=== PATIENT | female | born 1995 | race Caucasian/White ===

== ENCOUNTER 2016-09-11 22:57 | Emergency (ER) | payer BC ==
[2016-09-11 23:05] VITALS: RESP 18
[2016-09-11] MEDS ORDERED: KETOROLAC 30 MG/ML 1 ML VIAL IVP STA (23:23)
[2016-09-11] MEDS ORDERED: SODIUM CHLORIDE 0.9% 1,000 ML IV ONE (23:23)
[2016-09-11] MEDS ORDERED: ONDANSETRON 4 MG/2 ML VIAL IVP STA (23:23)
--- NOTE | 2016-09-11 23:27 | ED ---
Nausea/Vomiting/Diarrhea HPI - General Chief complaint: Nausea/Vomiting/Diarrhea Stated complaint: abdominal pain/vomiting Time Seen by Provider: 09/11/16 23:10 Source: patient, RN notes reviewed Mode of arrival: ambulatory Limitations: no limitations - History of Present Illness Initial comments: Patient is a 21-year-old female presents to the emergency room for evaluation of abdominal pain, nausea, vomiting. Patient states she has been having these symptoms for the past month. Patient states that she went to [facility] about 3 weeks ago where they did lab work and a CT scan and found no significant findings. Patient states that they diagnosed with a urinary tract infection and placed on Bactrim. Patient states that she still continued to have abdominal pain, nausea and vomiting. Patient states she went to see her primary care provider on Saturday and they ordered a HIDA scan for her. Patient states she did not schedule the HIDA scan yet. Patient states she is having worsening right upper quadrant pain that radiates to her back. Patient states every time she eats anything she vomits. Patient denies chest pain. Patient states she began developing diarrhea today. Patient denies recent travels out of the country. Patient denies headache or dizziness. Patient denies any pain or burning during urination or trouble urinating. Patient denies being sexually active. - Related Data Home Medications Medication Instructions Recorded Confirmed Levonorgestrel-Ethin Estradiol 1 tab PO DAILY 01/05/15 09/11/16 [Orsythia-28 Tablet] Previous Rx's Medication Instructions Recorded Nitrofurantoin Monohyd/M-Cryst 100 mg PO Q12HR 7 Days 09/12/16 [Macrobid] Allergies Allergy/AdvReac Type Severity Reaction Status Date / Time latex Allergy Rash/Hives Verified 09/11/16 23:15 Review of Systems ROS Statement: Those systems with pertinent positive or pertinent negative responses have been documented in the HPI. ROS Other: All systems not noted in ROS Statement are negative. Past Medical History Past Medical History: Asthma Additional Past Medical History / Comment(s): ABDOMINAL PAIN, HX OF ANEMIA History of Any Multi-Drug Resistant Organisms: None Reported Past Surgical History: Tonsillectomy Additional Past Surgical History / Comment(s): myringotomy Past Anesthesia/Blood Transfusion Reactions: No Reported Reaction Past Psychological History: No Psychological Hx Reported Smoking Status: Never smoker Past Alcohol Use History: None Reported Past Drug Use History: None Reported - Past Family History Mother Family Medical History: No Reported History General Exam - General Exam Comments Initial Comments: Sitting up in exam room, no acute distress. Limitations: no limitations General appearance: alert, in no apparent distress Head exam: Present: atraumatic, normocephalic, normal inspection Eye exam: Present: normal appearance ENT exam: Present: normal exam Neck exam: Present: normal inspection Respiratory exam: Present: normal lung sounds bilaterally. Absent: respiratory distress Cardiovascular Exam: Present: regular rate, normal rhythm, normal heart sounds GI/Abdominal exam: Present: soft, tenderness (Tenderness on palpating over upper midepigastric and right upper quadrant), normal bowel sounds. Absent: distended, guarding, rebound, rigid Extremities exam: Present: normal inspection Back exam: Present: normal inspection Neurological exam: Present: alert, oriented X3, CN II-XII intact, normal gait Psychiatric exam: Present: normal affect, normal mood Skin exam: Present: warm, dry, intact, normal color. Absent: rash Course Vital Signs 09/11/16 09/12/16 23:01 01:22 Temperature 99.1 F 98.3 F Pulse Rate 86 83 Respiratory 18 18 Rate Blood Pressure 132/73 100/57 O2 Sat by Pulse 97 98 Oximetry Medical Decision Making - Medical Decision Making Patient is a 21-year-old female presents emergency room for evaluation of abdominal pain, nausea and vomiting times one month. Patient states that no ultrasounds were done during her last few visits for this issue. Gallbladder ultrasound showed no acute findings. Pelvic ultrasound showed no acute findings. Patient's issues and better after pain medications given. Advised patient to follow-up with her primary care provider and to follow-up with the HIDA scan that was ordered. Patient can continue taking at home medications as needed. Patient is on Zofran and Pepcid at home. Labs show no concerning findings. Urinalysis suspicious for urinary tract infection. Patient was treated with Bactrim a few weeks ago. Will try patient on Macrobid. Urine culture pending. Patient states she understands everything that was discussed with her. Return parameters discussed. Case discussed with Dr. Rosenberg. - Lab Data Result diagrams: 09/11/16 23:30 09/11/16 23:30 Lab Results 09/11/16 09/11/16 09/11/16 Range/Units 23:30 23:30 23:30 WBC 8.4 (3.8-10.6) k/uL RBC 4.34 (3.80-5.40) m/uL Hgb 12.8 (11.4-16.0) gm/dL Hct 38.2 (34.0-46.0) % MCV 87.9 (80.0-100.0) fL MCH 29.4 (25.0-35.0) pg MCHC 33.4 (31.0-37.0) g/dL RDW 12.5 (11.5-15.5) % Plt Count 219 (150-450) k/uL Neutrophils % 66 % Lymphocytes % 21 % Monocytes % 4 % Eosinophils % 7 % Basophils % 1 % Neutrophils # 5.5 (1.3-7.7) k/uL Lymphocytes # 1.8 (1.0-4.8) k/uL Monocytes # 0.3 (0-1.0) k/uL Eosinophils # 0.6 (0-0.7) k/uL Basophils # 0.1 (0-0.2) k/uL Sodium 142 (137-145) mmol/L Potassium 3.9 (3.5-5.1) mmol/L Chloride 106 (98-107) mmol/L Carbon Dioxide 25 (22-30) mmol/L Anion Gap 11 mmol/L BUN 7 (7-17) mg/dL Creatinine 0.60 (0.52-1.04) mg/dL Est GFR (MDRD) Af Amer >60 (>60 ml/min/1.73 sqM) Est GFR (MDRD) Non-Af >60 (>60 ml/min/1.73 sqM) Glucose 95 (74-99) mg/dL Calcium 9.6 (8.4-10.2) mg/dL Magnesium 1.8 (1.6-2.3) mg/dL Total Bilirubin 0.5 (0.2-1.3) mg/dL AST 18 (14-36) U/L ALT 32 (9-52) U/L Alkaline Phosphatase 60 (38-126) U/L Total Protein 7.5 (6.3-8.2) g/dL Albumin 4.6 (3.5-5.0) g/dL Amylase 49 (30-110) U/L Lipase 44 (23-300) U/L Urine Color Urine Appearance (Clear) Urine pH (5.0-8.0) Ur Specific [place] (1.001-1.035) Urine Protein (Negative) Urine Glucose (UA) (Negative) Urine Ketones (Negative) Urine Blood (Negative) Urine Nitrite (Negative) Urine Bilirubin (Negative) Urine Urobilinogen (<2.0) mg/dL Ur Leukocyte Esterase (Negative) Urine RBC (0-5) /hpf Urine WBC (0-5) /hpf Urine WBC Clumps (None) /hpf Ur Squamous Epith Cells (0-4) /hpf Urine Bacteria (None) /hpf Urine HCG, Qual Not Detected (Not Detectd) 09/11/16 Range/Units 23:30 WBC (3.8-10.6) k/uL RBC (3.80-5.40) m/uL Hgb (11.4-16.0) gm/dL Hct (34.0-46.0) % MCV (80.0-100.0) fL MCH (25.0-35.0) pg MCHC (31.0-37.0) g/dL RDW (11.5-15.5) % Plt Count (150-450) k/uL Neutrophils % % Lymphocytes % % Monocytes % % Eosinophils % % Basophils % % Neutrophils # (1.3-7.7) k/uL Lymphocytes # (1.0-4.8) k/uL Monocytes # (0-1.0) k/uL Eosinophils # (0-0.7) k/uL Basophils # (0-0.2) k/uL Sodium (137-145) mmol/L Potassium (3.5-5.1) mmol/L Chloride (98-107) mmol/L Carbon Dioxide (22-30) mmol/L Anion Gap mmol/L BUN (7-17) mg/dL Creatinine (0.52-1.04) mg/dL Est GFR (MDRD) Af Amer (>60 ml/min/1.73 sqM) Est GFR (MDRD) Non-Af (>60 ml/min/1.73 sqM) Glucose (74-99) mg/dL Calcium (8.4-10.2) mg/dL Magnesium (1.6-2.3) mg/dL Total Bilirubin (0.2-1.3) mg/dL AST (14-36) U/L ALT (9-52) U/L Alkaline Phosphatase (38-126) U/L Total Protein (6.3-8.2) g/dL Albumin (3.5-5.0) g/dL Amylase (30-110) U/L Lipase (23-300) U/L Urine Color Light Yellow Urine Appearance Turbid H (Clear) Urine pH 6.5 (5.0-8.0) Ur Specific [place] 1.005 (1.001-1.035) Urine Protein Negative (Negative) Urine Glucose (UA) Negative (Negative) Urine Ketones Negative (Negative) Urine Blood Trace H (Negative) Urine Nitrite Negative (Negative) Urine Bilirubin Negative (Negative) Urine Urobilinogen <2.0 (<2.0) mg/dL Ur Leukocyte Esterase Large H (Negative) Urine RBC 9 H (0-5) /hpf Urine WBC 62 H (0-5) /hpf Urine WBC Clumps Moderate H (None) /hpf Ur Squamous Epith Cells 36 H (0-4) /hpf Urine Bacteria Moderate H (None) /hpf Urine HCG, Qual (Not Detectd) - Radiology Data Radiology results: report reviewed, image reviewed Disposition Clinical Impression: Urinary tract infection, Abdominal pain Disposition: HOME SELF-CARE Condition: Good Instructions: Abdominal Pain (ED), Urinary Tract Infection in Women (ED) Additional Instructions: Take antibiotics as directed. Please follow up with primary care provider for further evaluation. If any new symptom arises or symptoms worsen, return to ER as soon as possible. Prescriptions: Nitrofurantoin Monohyd/M-Cryst [Macrobid] 100 mg PO Q12HR 7 Days Referrals: Soy Rojas MD [Primary Care Provider] - 1-2 days Time of Disposition: 01:49
[2016-09-11 23:44] LABS: Basophils # (A) 0.1 k/uL (0-0.2); Basophils % (A) 1 %; CH 29.3; CHCM 33.5; Eosinophils # (A) 0.6 k/uL (0-0.7); Eosinophils % (A) 7 %; HCT 38.2 % (34.0-46.0); HDW 2.36; HGB 12.8 gm/dL (11.4-16.0); Luc # (Auto) 0.16; Luc % (Auto) 2; Lymphocytes # (A) 1.8 k/uL (1.0-4.8); Lymphocytes % (A) 21 %; MCH 29.4 pg (25.0-35.0); MCHC 33.4 g/dL (31.0-37.0); MCV 87.9 fL (80.0-100.0); Mean Platelet Volume 6.4; Monocytes # (A) 0.3 k/uL (0-1.0); Monocytes % (A) 4 %; Neutrophils # (A) 5.5 k/uL (1.3-7.7); Neutrophils % (A) 66 %; RBC 4.34 m/uL (3.80-5.40); RDW 12.5 % (11.5-15.5); WBC 8.4 k/uL (3.8-10.6); WBC (Perox) 8.37
[2016-09-11 23:49] LABS: Appearance,Urine Turbid (Clear); Bacteria,Urine Moderate /hpf; Bilirubin,Urine Negative (Negative); Glucose,Urine (UA) Negative (Negative); Ketones,Urine Negative (Negative); Leukocyte Esterase,Urine Large (Negative); Nitrite,Urine Negative (Negative); PH, Urine 6.5 (5.0-8.0); Particle Count 22792; Protein,Urine Negative (Negative); RBC,Urine 9 /hpf (0-5); Specific Gravity,Urine 1.005 (1.001-1.035); Squamous Epithelial Cell,Urine 36 /hpf (0-4); UA Billing (MACRO vs. MICRO) MICRO; Urobilinogen,Urine <2.0 mg/dL (<2.0); WBC,Urine 62 /hpf (0-5)
[2016-09-11 23:54] LABS: ALT 32 U/L (9-52); AST 18 U/L (14-36); Alkaline Phosphatase 60 U/L (38-126); Amylase 49 U/L (30-110); Anion Gap 11 mmol/L; Blood Urea Nitrogen 7 mg/dL (7-17); Calcium 9.6 mg/dL (8.4-10.2); Carbon Dioxide 25 mmol/L (22-30); Chloride 106 mmol/L (98-107); Glucose 95 mg/dL (74-99); Magnesium 1.8 mg/dL (1.6-2.3); Non-African American GFR(MDRD) >60 (>60 ml/min/1.73 sqM); Potassium 3.9 mmol/L (3.5-5.1); Sodium 142 mmol/L (137-145); Total Bilirubin 0.5 mg/dL (0.2-1.3); Total Protein 7.5 g/dL (6.3-8.2)
[2016-09-12 01:24] VITALS: BP 100/57; PULSE 83; TEMP 98.3
--- NOTE | 2016-09-12 01:36 | US ---
EXAM: US Abdomen Complete CLINICAL HISTORY: Reason: Pain TECHNIQUE: Real-time ultrasound of the abdomen (right upper quadrant) with image documentation. COMPARISON: CT abdomen pelvis dated 11/09/14 FINDINGS: Liver: Unremarkable. No mass. No intrahepatic bile duct dilation. Gallbladder: Unremarkable. No gallstones. Sonographic Godfrey's sign is reported to be absent. Common bile duct: Unremarkable as visualized. No stones. No dilation. Pancreas: Not well-seen due to overlying bowel gas. Kidney, right: Unremarkable. No stones. No solid mass. No hydronephrosis. IMPRESSION: Normal abdominal ultrasound.
--- NOTE | 2016-09-12 01:39 | US ---
EXAM: US Pelvis Complete, Transabdominal CLINICAL HISTORY: Reason: Pain TECHNIQUE: Real-time transabdominal and transvaginal pelvic ultrasound (complete) with image documentation. COMPARISON: CT abdomen pelvis dated 11/09/14. FINDINGS: Uterus/cervix: Unremarkable. Normal endometrial stripe thickness. No myometrial mass. Endometrium Compex measures 4 mm. Uterus measures 7.6 x 3.4 x 4.4 cm. Right ovary: Unremarkable. No mass. Normal blood flow. Right ovary measures 3.4 x 1.9 x 2.8 cm. Left ovary: Unremarkable. No mass. Normal blood flow. Left ovary measures 3.1 x 2.2 x 2.4 cm. Free fluid: No free fluid. Bladder: Unremarkable as visualized. Wall is normal thickness for degree of distention. IMPRESSION: Normal pelvic ultrasound.
== END 2016-09-12 02:05 | disposition home or self-care (01) ==
LOC: EC 22:57
DX: N39.0 Urinary tract infection, site not specified (principal); R10.11 Right upper quadrant pain; R11.2 Nausea with vomiting, unspecified; R19.7 Diarrhea, unspecified; Z79.3 Long term (current) use of hormonal contraceptives; Z91.040 Latex allergy status
CPT/HCPCS: 36415; 80053; 82150; 83690; 83735; 85025; 81001; 81025; 87491; 87591; 87086; 93975; 76705; 76856; 99284; 96374; 96375; 96361 ×2; J2405; J1885

== ENCOUNTER 2016-09-20 07:29 | Day surgery (SDC) | payer BC ==
[2016-09-18 13:13] VITALS: BMI 25.0
[~2016-09-20 07:29] MED LIST: LACTATED RINGERS 1,000 ML IV SCH
[2016-09-20 07:43] VITALS: TEMP 98.1
[2016-09-20] MEDS ORDERED: LIDOCAINE 1% 20 ML VIAL (10MG/ML) FOR IV START SQ ONE (07:45)
[2016-09-20] MEDS ORDERED: PROPOFOL 10 MG/ML 20 ML VIAL IV ONE (09:16)
--- NOTE | 2016-09-20 10:01 | P.PCN ---
Date of Procedure: 09/20/16 Preoperative Diagnosis: Postoperative Diagnosis: Procedure(s) Performed: Procedure: 1. Esophagogastroduodenoscopy and biopsy. 2. Colonoscopy and biopsy. Preoperative diagnosis: Change in bowel habits, epigastric pain with nausea and vomiting. Postoperative diagnosis: 1. Small sliding hiatal hernia with no obvious esophagitis or complicated reflux disease. 2. Mild antral gastritis. 3. Normal colon and terminal ileum. Preparation: HalfLytely prep. Sedation: Was provided by anesthesia. Brief clinical history: The patient is a 21-year-old female who is referred for this evaluation because of recurrent epigastric pain, nausea and vomiting which was intermittent over the last year or 2 but became almost daily for the last several weeks. She was in the emergency room 2 different times. Gallbladder workup has been negative except for increased ejection fraction. For the last few weeks she has been having diarrhea as well. Procedure: With the patient on her left lateral decubitus position and after informed consent and adequate sedation, I passed the Olympus-GIF 160 video upper endoscope through the cricopharyngeus down the esophagus. GE junction was around a 6 cm from the incisors and there was a small sliding hiatal hernia. The esophagus did not show any erosions, ulcers, strictures or Burns' s esophagus. The endoscope was then passed into the stomach which was insufflated with air and inspected in detail including the retroflex view in the cardia. There was some mottling and erythema in the antrum but no ulcers or erosions. Pyloric channel, duodenal bulb, post bulbar area and descending duodenum appeared within normal limits. I obtained multiple biopsies from the duodenum, antrum and esophagus then the endoscope was withdrawn and I proceeded with the colonoscopy. Perianal area did not show any fissures or fistulas. There were no masses felt on digital rectal examination. The Olympus CFQ 160L video colonoscope was then inserted in the rectum in the usual fashion and advanced to the cecum. I intubated the ileocecal valve and examined the terminal ileum as well. Terminal ileum and colon appeared healthy with no edema, erythema, friability, ulceration, exudation or spontaneous bleeding. No diverticular disease or other pathology. I obtained biopsies from the terminal ileum and right colon then I retroflexed the endoscope in the rectum before the endoscope was withdrawn. The patient tolerated the procedure well. Plan: The patient was reassured. Will await biopsy results. She will follow- up with you as planned and I will be happy to see in the office of her symptoms persist. Implants: Indications for Procedure: Operative Findings: Description of Procedure:
[2016-09-20 10:28] VITALS: BP 98/60; PULSE 76; RESP 14
== END 2016-09-20 10:45 | disposition home or self-care (01) ==
LOC: ORWHC2ENDO 07:29
DX: K29.50 Unspecified chronic gastritis without bleeding (principal); K44.9 Diaphragmatic hernia without obstruction or gangrene; K20.9 Esophagitis, unspecified; R19.4 Change in bowel habit; Z91.040 Latex allergy status; Z79.2 Long term (current) use of antibiotics; Z79.899 Other long term (current) drug therapy
CPT/HCPCS: 81025; 88305; 88342; 45380; 43239; J2704

== ENCOUNTER 2016-10-19 07:44 | Day surgery (SDC) | payer BC ==
--- NOTE | 2016-10-15 10:32 | HP ---
DATE OF ADMISSION: CHIEF COMPLAINT: Abdominal pain. The patient is a 21-year-old female seen in the office today complaining of right upper quadrant pain. This pain is associated with several episodes of nausea and vomiting. She has had approximately 4 to 5 separate ER visits now with this complaint. Her work-up has included an abdominal ultrasound which was negative. A CAT scan also was fairly unremarkable. She had an upper and lower endoscopy performed by Dr. Rosario, which did not show any definite abnormalities to explain her discomfort. A HIDA scan showed hyperdynamic gallbladder with an ejection fraction of 95%. The patient denies any change in bowel habits. No rectal bleeding or melena. No change in the color of her skin, urine or stool. PAST MEDICAL HISTORY: Denies. PAST SURGICAL HISTORY: Tonsil. MEDICATIONS: None. ALLERGIES: None. PHYSICAL EXAMINATION: GENERAL: Well-developed, well-nourished female in no distress, and she is normocephalic. Sclerae anicteric. CHEST: No deformities. ABDOMEN: Soft. Mild right upper quadrant tenderness. EXTREMITIES: Without edema. IMPRESSION: A 21-year-old female with biliary hyperkinesia. PLAN: Will proceed with laparoscopic cholecystectomy on 10/19. The risks of bleeding, infection, biloma formation, common bile duct injury, retained CBD stone, trocar-related injury and conversion to an open procedure were discussed. Additionally, chronic diarrhea, and chronic, persistent postoperative pain, were discussed as possibilities. The patient understands these risks and wishes to proceed.
[2016-10-16 15:57] VITALS: BMI 25.0
--- NOTE | 2016-10-18 08:35 | P.GSHP ---
History of Present Illness H&P Date: 10/19/16 Chief Complaint: Right upper quadrant pain Is a 21-year-old female who's had complaints of right quadrant pain. Her recent HIDA scan shows evidence of decreased ejection fraction consistent with biliary dyskinesia. Past Medical History Past Medical History: Asthma Additional Past Medical History / Comment(s): RLQ ABDOMINAL PAIN, VOMITING, HX OF ANEMIA, recent UTI History of Any Multi-Drug Resistant Organisms: None Reported Past Surgical History: Tonsillectomy Additional Past Surgical History / Comment(s): myringotomy Past Anesthesia/Blood Transfusion Reactions: No Reported Reaction Past Psychological History: No Psychological Hx Reported Smoking Status: Never smoker Past Alcohol Use History: None Reported Past Drug Use History: None Reported - Past Family History Mother Family Medical History: No Reported History Medications and Allergies Home Medications Medication Instructions Recorded Confirmed Type Levonorgestrel-Ethin Estradiol 1 tab PO DAILY 01/05/15 10/16/16 History [Orsythia-28 Tablet] Allergies Allergy/AdvReac Type Severity Reaction Status Date / Time latex Allergy Rash/Hives Verified 10/16/16 15:53 Surgical - Exam - General well developed, no distress - Eyes PERRL - Neck no masses - Cardiovascular Rhythm: regular - Abdomen Abdomen: soft, non tender Assessment and Plan Plan: Chronic cholecystitis The decision We'll perform laparoscopic cholecystectomy
[~2016-10-19 07:44] MED LIST changes: +DEXAMETHASONE SOD PHOSPHATE 10 MG/ML 1 ML VIAL IV ONE; +HEPARIN SODIUM,PORCINE 5,000 UNIT/ML 1 ML VIAL SQ ONE; +HYDROmorphone 1 MG/ML 1 ML SYRINGE IVP PRN; +LIDOCAINE 1% 20 ML VIAL (10MG/ML) FOR IV START INTRADERMA PRN; +ONDANSETRON 4 MG/2 ML VIAL IVP ONE; +SCOPOLAMINE 1.5MG/72HR PATCH TRANSDERM ONE; +ceFAZolin 2 GM in SODIUM CHLORIDE 0.9% 100 ML IVPB ONE
[2016-10-19] MEDS ORDERED: BUPIVACAIN-EPI 0.25%-1:200,000 30 ML VIAL SQ ONE ×2 (09:09→10:02)
[2016-10-19] MEDS ORDERED: PROPOFOL 10 MG/ML 20 ML VIAL IV ONE (09:37)
[2016-10-19] MEDS ORDERED: ePHEDrine 50 MG/ML 1 ML AMP ONE (09:37)
[2016-10-19] MEDS ORDERED: ROCURONIUM BROMIDE 10 MG/ML 10 ML VIAL IV ONE (09:37)
[2016-10-19] MEDS ORDERED: NEOSTIGMINE 1 MG/ML 10 ML VIAL ONE (09:37)
[2016-10-19] MEDS ORDERED: MIDAZOLAM 2 MG/2 ML VIAL ONE (09:37)
[2016-10-19] MEDS ORDERED: HYDROmorphone (PF) 1 MG/ML ONE (09:37)
[2016-10-19] MEDS ORDERED: LIDOCAINE 1% INJ 10MG/ML (20 ML MDV) ONE (09:37)
[2016-10-19] MEDS ORDERED: GLYCOPYRROLATE 0.2 MG/ML 2 ML VIAL ONE (09:37)
[2016-10-19] MEDS ORDERED: SUCCINYLCHOLINE CHLORIDE 100 MG/5 ML SYR IV ONE (09:37)
[2016-10-19] MEDS ORDERED: fentaNYL (PF) 50 MCG/ML 2 ML AMP ONE (09:37)
[2016-10-19] MEDS ORDERED: LACTATED RINGERS 1,000 ML IV ONE ×2 (10:23→12:52)
[2016-10-19] MEDS ORDERED: HYDROcodone/APAP 5-325MG 1 EACH TAB PO PRN (10:43)
[2016-10-19] MEDS ORDERED: NALOXONE 0.4 MG/ML 1 ML VIAL IV PRN (10:43)
--- NOTE | 2016-10-19 10:50 | P.PCN ---
Date of Procedure: 10/19/16 Preoperative Diagnosis: Postoperative Diagnosis: Procedure(s) Performed: PREOPERATIVE DIAGNOSIS: Biliary dyskinesia POSTOPERATIVE DIAGNOSIS: Same, adhesions PROCEDURE: Laparoscopic cholecystectomy with lysis of adhesions SURGEON: Leonor EBL: Minimal see anesthesia record ANESTHESIA: Gen. COMPLICATIONS: None OPERATIVE PROCEDURE: The patient was brought and placed on the operating room table in the supine position. The patient was placed under general anesthesia at that time. The abdomen was prepped and draped in the usual sterile fashion. A small vertical infraumbilical incision was made. The fascia was grasped with the Fior forceps. The fascia was retracted anteriorly. The Veress needle was advanced into the peritoneal cavity. The saline drop test was normal. Insufflation took place up to 15 mmHg. A 5 mm optical trocar was advanced and the peritoneal cavity. 2 additional 5 mm trochars were placed in the right upper quadrant under direct visualization. A 10 mm trocar was advanced into the epigastric incision site. The gallbladder was retracted superiorly and laterally. The peritoneum overlying the infundibulum was bluntly dissected. The patient's cystic duct was visualized. The junction between the cystic duct common and hepatic duct was identified. The cystic duct was then divided after placement of 3 10 mm clips on the patient's side and one on the specimen side. The cystic artery was identified and clipped as well. A small vessel was seen along the gallbladder fossa and clipped as well. The gallbladder was then removed from the liver bed using electrocautery. The gallbladder was then removed from the epigastric trocar site with an Endo Catch bag. The gallbladder fossa was irrigated with saline. There was no evidence of any bleeding or biliary drainage seen. There were some adhesions between the pericolonic fat in the lateral aspect of the right lower liver. There did appear to be some tension here. Could have been shooting the patient' s symptoms. The fascia was retracted anteriorly and the fat was divided as it was adherent to the liver. No bleeding was seen. The trochars were then removed. The fascia at the 10 millimeter site was closed using a figure-of- eight 0 Vicryl stitch. The skin at all 4 sites was closed using a 4-0 Monocryl stitch. At the end of this procedure the sponge and needle counts were correct. DISPOSITION: Stable to the recovery room Implants: Indications for Procedure: Operative Findings: Description of Procedure:
[2016-10-19 11:00] VITALS: TEMP 976
[2016-10-19] MEDS: MEPERIDINE 50 MG/ML SYRINGE IVP ONE ×2 (11:00→11:10)
[2016-10-19 11:33] VITALS: RESP 16
[2016-10-19 12:55] VITALS: BP 111/68; PULSE 92
[2016-10-19] MEDS ORDERED: ONDANSETRON 4 MG/2 ML VIAL IVP ONE (13:30)
== END 2016-10-19 14:00 | disposition home or self-care (01) ==
LOC: OR 07:44
PROVIDERS: ATTEND Surgery
DX: K81.1 Chronic cholecystitis (principal); K66.0 Peritoneal adhesions (postprocedural) (postinfection); Z79.3 Long term (current) use of hormonal contraceptives; Z91.040 Latex allergy status
CPT/HCPCS: 81025; 88304; 47562; J2250; J1644; J1100; J2710; J2175; J0690; J2405; J2001; J3010; J1170; J0330; J2704

== ENCOUNTER → 2018-05-31 | Outpatient (CLI) | payer BC ==
--- NOTE | 2018-06-01 15:24 | XR ---
EXAMINATION TYPE: XR hand complete RT DATE OF EXAM: 06/01/2018 COMPARISON: NONE HISTORY: 23 year-old female right hand pain TECHNIQUE: 3 views FINDINGS: No marginal erosions or soft tissue calcification seen. Joint spaces are maintained. No acute fractur e, subluxation, or dislocation. IMPRESSION: No acute osseous abnormality seen.
== END | disposition home or self-care (01) ==
LOC: RADXRMAIN 13:07
PROVIDERS: ATTEND Emergency Medicine
DX: M79.641 Pain in right hand (principal)

== ENCOUNTER 2019-03-12 11:11 | Emergency (ER) | payer BC ==
[2019-03-12 11:22] VITALS: BP 115/76; PULSE 84; RESP 20; TEMP 98
--- NOTE | 2019-03-12 12:30 | ED ---
Recheck HPI - General Chief Complaint: Recheck/Abnormal Lab/Rx Stated Complaint: mastitis Source: patient Mode of arrival: ambulatory Limitations: no limitations - History of Present Illness Initial Comments: 23-year-old female presented emergency department for evaluation of bilateral mastitis. Patient states 2 days ago at urgent care she was diagnosed with bilateral mastitis she states at that time her breasts had significant bright red color and had areas of "hardness". He states his symptoms began 1 day prior. Patient states she had chills and flulike symptoms at that time. Patient states she was prescribed Augmentin upon discharge from the urgent care. She states that she was told if in 2 days her symptoms did not completely resolve to be reevaluated. Patient states the redness is almost gone however she's continues to have some discomfort in the breast bilaterally. Patient denies any current fevers but states she has been taking Tylenol for pain. Remaining abuse is negative denies any other complaints. Remaining review system negative. Patient said she has been breast-feeding from both breasts - Related Data Home Medications Medication Instructions Recorded Confirmed Levonorgestrel-Ethin Estradiol 1 tab PO DAILY 01/05/15 10/19/16 [Orsythia-28 Tablet] Previous Rx's Medication Instructions Recorded Hydrocodone/Acetaminophen [[place] 1 - 2 each PO Q4HR PRN #30 tab 10/19/16 5-325] Allergies Allergy/AdvReac Type Severity Reaction Status Date / Time latex Allergy Rash/Hives Verified 03/12/19 11:22 Review of Systems ROS Statement: Those systems with pertinent positive or pertinent negative responses have been documented in the HPI. ROS Other: All systems not noted in ROS Statement are negative. Past Medical History Past Medical History: Asthma Additional Past Medical History / Comment(s): RLQ ABDOMINAL PAIN, VOMITING, HX OF ANEMIA, recent UTI History of Any Multi-Drug Resistant Organisms: None Reported Past Surgical History: Tonsillectomy Additional Past Surgical History / Comment(s): myringotomy Past Anesthesia/Blood Transfusion Reactions: No Reported Reaction Past Psychological History: No Psychological Hx Reported Smoking Status: Never smoker Past Alcohol Use History: None Reported Past Drug Use History: None Reported - Past Family History Mother Family Medical History: No Reported History General Exam - General Exam Comments Initial Comments: General: The patient is awake and alert, in no distress, and does not appear acutely ill. Eye: Pupils are equal, round and reactive to light, extra-ocular movements are intact. No nystagmus. There is normal conjunctiva bilaterally. No signs of icterus. Cardiovascular: There is a regular rate and rhythm. No murmur, rub or gallop is appreciated. Respiratory: Lungs are clear to auscultation, respirations are non-labored, breath sounds are equal. No wheezes, stridor, rales, or rhonchi. Musculoskeletal: Normal ROM, no tenderness. Strength 5/5. Sensation intact. Pulses equal bilaterally 2+. Neurological: A&O x 3. CN II-XII intact grossly, There are no obvious motor or sensory deficits. Coordination appears grossly intact. Speech is normal. Skin: Skin is warm and dry and no rashes. Very mild redness of the breast diffusely surrounding the nipple and extending towards the soft tissues. There is no nipple drainage. No palpable abscess. Very mild tenderness to palpation. Minimal warmth. Psychiatric: Cooperative, appropriate mood & affect, normal judgment. Limitations: no limitations Course Vital Signs 03/12/19 11:20 Temperature 98 F Pulse Rate 84 Respiratory 20 Rate Blood Pressure 115/76 O2 Sat by Pulse 99 Oximetry Medical Decision Making - Medical Decision Making 23-year-old female presenting for reevaluation. Patient still continues to have some mild discomfort in the breast bilaterally however states that she is significant decrease in the redness. Patient compliant with her Augmentin with a total of 4 doses. Patient's breasts are minimally red on examination. No warmth. Patient does not have tachycardia or hypotension she appears well and nontoxic. She is afebrile. At this time I do feel patient is stable for discharge as it appears that antibiotics are therapeutic. Patient case discussed with him provider Dr. Brooks at this time we feel patient is stable for discharge and outpatient primary care follow-up. Disposition Clinical Impression: Acute bilateral mastoiditis Disposition: HOME SELF-CARE Condition: Good Instructions (If sedation given, give patient instructions): Mastitis (ED) Additional Instructions: Please use medication as discussed. Please follow-up with family doctor in the next 24-48 hours. If redness increases, chills or fevers/unwell feeling please return to the ER. Please return to emergency room if the symptoms increase or worsen or for any other concerns. Is patient prescribed a controlled substance at d/c from ED?: No Referrals: Neloriec,Soy, MD [Primary Care Provider] - 1-2 days Time of Disposition: 12:29
== END 2019-03-12 12:53 | disposition home or self-care (01) ==
LOC: EC 11:11
DX: H70.003 Acute mastoiditis without complications, bilateral (principal); Z79.3 Long term (current) use of hormonal contraceptives; Z91.040 Latex allergy status
CPT/HCPCS: 99283

== ENCOUNTER 2022-09-10 15:32 | Inpatient (IN) | payer OTHER ==
[2022-09-10] MEDS ORDERED: CARBOPROST TROMETHAMINE 250 MCG/ML 1 ML AMP IM PRN (17:30)
[2022-09-10] MEDS ORDERED: TRANEXAMIC ACID IN NACL,ISO-OS 1,000 MG in EMPTY BAG 1 BAG IV PRN (17:30)
[2022-09-10] MEDS ORDERED: OXYTOCIN 10 UNIT/ML 1 ML VIAL IM PRN (17:30)
[2022-09-10] MEDS ORDERED: LACTATED RINGERS 1,000 ML IV ONE (17:30)
[2022-09-10] MEDS ORDERED: LACTATED RINGERS 1,000 ML IV SCH (17:30)
[2022-09-10] MEDS ORDERED: METHYLERGONOVINE 0.2 MG/ML 1 ML AMP IM PRN (17:30)
[2022-09-10] MEDS ORDERED: CITRIC ACID-SODIUM CITRATE 15 ML CUP PO ONE (17:30)
[2022-09-10] MEDS ORDERED: miSOPROStoL 200 MCG TAB PO PRN (17:30)
--- NOTE | 2022-09-10 17:44 | P.HPOB ---
History of Present Illness H&P Date: 09/10/22 Chief Complaint: Postdates , no care This patient is a 27-year-old 5 para 2 female with stated estimated date of confinement of 08/31/2022 based on a probable 18-19 week ultrasound estimated gestational age 41-1/2 weeks who presents to labor and delivery per instructions of her Drug Safety Specialist. Patient states that her first she had a vaginal delivery of a baby girl and then subsequently had a section for her second due to a symphysis pubis problem. Patient's intention this was to have a home in the presence of her Drug Safety Specialist. Patient indicates that she did have 1 ultrasound done at around 18 weeks or so at [facility] bullet swaging machine operator but only went there for one visit to obtain the ultrasound. She's had no testing done, no glucose testing done, and has not had any exams or other care. Apparently her Drug Safety Specialist told her today that she is uncomfortable now delivering her at home and told her to come to the hospital. Patient's cervix is closed and thick. She does have some elevated blood pressures as well. She denies any history of blood pressure problems in the past or with previous pregnancies. Patient reports movement. Review of Systems Genitourinary: Reports as per HPI, Reports Menstruation: Reports amenorrhea Past Medical History Past Medical History: Asthma Additional Past Medical History / Comment(s): RLQ ABDOMINAL PAIN, VOMITING, HX OF ANEMIA, recent UTI History of Any Multi-Drug Resistant Organisms: None Reported Past Surgical History: Section, Tonsillectomy Additional Past Surgical History / Comment(s): myringotomy Past Anesthesia/Blood Transfusion Reactions: No Reported Reaction Past Psychological History: No Psychological Hx Reported Smoking Status: Never smoker Past Alcohol Use History: None Reported Past Drug Use History: None Reported - Past Family History Mother Family Medical History: No Reported History Medications and Allergies Home Medications Medication Instructions Recorded Confirmed Type Vit No.179/Iron/Folic 1 tab PO DAILY 06/23/22 09/10/22 History [ Tablet] Allergies Allergy/AdvReac Type Severity Reaction Status Date / Time latex Allergy Rash/Hives Verified 06/23/22 11:54 Exam Intake and Output 09/10/22 09/10/22 09/10/22 06:59 14:59 22:59 Other: Weight 88.451 kg - OBG Physical Exam Abdomen: bowel sounds normal, no diffuse tenderness, no bruit present, no guarding noted, no hepatomegaly, no splenomegaly, no mass Vulva: both: normal Vagina: normal moisture, no discharge Cervix: no lesion (Cervix is closed and thick), no discharge Uterus: enlarged Assessment and Plan Assessment: This is a 27-year-old 5 para 2 female 41-1/2 weeks gestation with no care, previous section, hypertension, and requesting care. I had a long discussion with the patient about the clinical situation and since she is not dilated and postdates with hypertension and advised proceed with arroyo now by repeat section. She is agreeable to this plan. She does understand the surgery and risks and risks of infection, bleeding, possible injury bowel, bladder, vessels, and other organs. There also check preeclampsia labs. We will need to get a social work instructor consult as well. All the patient's questions are answered and a written consent is obtained. (1) 41 weeks gestation of Current Visit: Yes Status: Acute Code(s): O48.0 - POST-TERM ; Z3A.41 - 41 WEEKS GESTATION OF SNOMED Code(s): 02699857 (2) Previous delivery affecting Current Visit: Yes Status: Acute Code(s): O34.219 - MATERNAL CARE FOR UNSP TYPE SCAR FROM PREVIOUS DEL SNOMED Code(s): 659621155 (3) No care in current Current Visit: Yes Status: Acute Code(s): O09.30 - SUPRVSN OF PREG W INSUFFICIENT ANTENAT CARE, UNSP TRIMESTER SNOMED Code(s): 587502886 (4) Gestational hypertension Current Visit: Yes Status: Acute Code(s): O13.9 - GESTATIONAL HTN W/O SIGNIFICANT PROTEINURIA, UNSP TRIMESTER SNOMED Code(s): 76680082
[2022-09-10 17:53] LABS: Anisocytosis Slight; Basophils % (A) 0 %; Eosinophils # (A) 0.1 k/uL (0-0.7); Eosinophils % (A) 1 %; HCT 30.8 % (34.0-46.0); HGB 9.6 gm/dL (11.4-16.0); Hypochromasia Moderate; Lymphocytes # (A) 1.4 k/uL (1.0-4.8); Lymphocytes % (A) 16 %; MCV 74.1 fL (80.0-100.0); Mean Platelet Volume 7.2; Microcytosis Slight; Monocytes # (A) 0.4 k/uL (0-1.0); Monocytes % (A) 5 %; Neutrophils # (A) 6.5 k/uL (1.3-7.7); Neutrophils % (A) 75 %; Platelet Count 223 k/uL (150-450); Poikilocytosis Slight; RBC 4.16 m/uL (3.80-5.40); RDW 16.3 % (11.5-15.5); WBC 8.6 k/uL (3.8-10.6)
[2022-09-10 17:55] LABS: Amphetamine Screen,Urine Not Detected (NotDetected); Barbiturate Screen,Urine Not Detected (NotDetected); Benzodiazepines Screen,Urine Not Detected (NotDetected); Cocaine Screen,Urine Not Detected (NotDetected); Methadone Screen, Urine Not Detected (NotDetected); Opiate Screen,Urine Not Detected (NotDetected); Oxycodone Screen, Urine Not Detected (NotDetected); Phencyclidine Screen,Urine Not Detected (NotDetected); Tricyclic Antidepressant,Urine Not Detected (NotDetected); Urn Cannabinoid Scrn Not Detected (NotDetected)
[2022-09-10 18:12] LABS: Appearance,Urine Cloudy (Clear); Bacteria,Urine Occasional /hpf; Bilirubin,Urine Negative (Negative); Blood,Urine Trace (Negative); Color,Urine Yellow; Glucose,Urine (UA) 3+ (Negative); Ketones,Urine Negative (Negative); Leukocyte Esterase,Urine Large (Negative); Mucus,Urine Rare /hpf; Nitrite,Urine Negative (Negative); Protein,Urine 1+ (Negative); RBC,Urine 21 /hpf (0-5); Specific Gravity,Urine 1.018 (1.001-1.035); Squamous Epithelial Cell,Urine 10 /hpf (0-4); Urobilinogen,Urine <2.0 mg/dL (<2.0); WBC,Urine 23 /hpf (0-5)
[2022-09-10 18:12] LABS: ALT 11 U/L (4-34); AST 19 U/L (14-36); African American GFR (CKD) >90 (>60 ml/min/1.73 sqM); Blood Urea Nitrogen 8 mg/dL (7-17); Glucose 111 mg/dL (74-99); LDH 191 U/L (120-246); Non-African American GFR(CKD) >90 (>60 ml/min/1.73 sqM); Uric Acid 4.5 mg/dL (3.7-7.4)
[2022-09-10 18:21] LABS: Creatinine,Urine Random 104.7 mg/dL; Protein/Creatinine Ratio,Urine 0.191
[2022-09-10] MEDS ORDERED: MORPHINE SULFATE (PF) 0.3 MG/0.3 ML SYR ONE (18:29)
[2022-09-10] MEDS ORDERED: ONDANSETRON 4 MG/2 ML VIAL ONE (18:29)
[2022-09-10] MEDS ORDERED: PHENYLEPHRINE-0.9% NACL SYG 1,000 MCG/10 ML SYRINGE ONE (18:29)
[2022-09-10] MEDS ORDERED: OXYTOCIN 30 UNITS/500 ML NS BAG IV ONE (18:29)
[2022-09-10] MEDS ORDERED: KETOROLAC 30 MG/ML 1 ML VIAL ONE (18:29)
[2022-09-10] MEDS ORDERED: diphenhydrAMINE 50 MG/ML 1 ML VIAL IVP PRN (19:30)
[2022-09-10] MEDS ORDERED: ONDANSETRON 4 MG/2 ML VIAL IVP PRN (19:30)
[2022-09-10] MEDS ORDERED: LANOLIN CREAM 5 GM TUBE TOPICAL PRN (19:30)
[2022-09-10] MEDS ORDERED: OXYTOCIN 30 UNITS/500 ML NS 30 UNIT in SALINE 1 500ML.BAG IV SCH (19:30)
[2022-09-10] MEDS ORDERED: SIMETHICONE 80 MG CHEWABLE PO PRN (19:30)
[2022-09-10] MEDS ORDERED: diphenhydrAMINE 25 MG CAP PO PRN (19:30)
[2022-09-10] MEDS ORDERED: NALOXONE 0.4 MG/ML 1 ML VIAL IV PRN (19:30)
[2022-09-10] MEDS ORDERED: ZOLPIDEM 5 MG TAB PO PRN (19:30)
[2022-09-10] MEDS ORDERED: METOCLOPRAMIDE 5 MG/ML 2 ML VIAL IVP PRN (19:30)
--- NOTE | 2022-09-10 19:45 | P.OP ---
Date of Procedure: 09/10/22 Preoperative Diagnosis: #1: 41-1/2 weeks intrauterine . #2: No care #3: Previous section with unfavorable cervix desires repeat #4: Gestational hypertension Postoperative Diagnosis: #1: Same. #2: Meconium-stained fluid. #3: macrosomia. #4: Suspected gestational diabetes, uncontrolled. Procedure(s) Performed: Repeat low transverse section Anesthesia: spinal Surgeon: Jaspreet Moses Guidance Services Coordinator #1: Toshia Gonzales Estimated Blood Loss (ml): 600 Pathology: other (Placenta) Condition: stable Disposition: observation Indications for Procedure: Please see dictated H&P for intimate details of this patient's admission. In brief summary this is a 27-year-old 5 para 2 female estimated gestational age 41-1/2 weeks who presents to labor and delivery for evaluation and delivery. Patient's had no care and intended on being delivered at home by her Internal Grinding Machine Operator. She's had a previous section. Patient stated today that her Internal Grinding Machine Operator told her to come to the hospital that she was not comfortable d oing her delivery at home. Evaluation here shows some elevated blood pressures without evidence of preeclampsia. She also had 3+ glucose on her urine specimen and states that in her first she had some gestational diabetes. She's had no testing this . Cervix is closed. I recommended that she proceed immediately with delivery by section and she agreed. Patient stands this procedure and risks including risks of infection, bleeding, possible injury to bowel, bladder, vessels, and/or other organs. All the patient's questions are answered and a written consent is obtained. Operative Findings: This is a vigorous viable male Apgars 8 and 8 delivery time was 1847 hrs. has spontaneous respirations and good cry. weight was 4520 g which is 9 lbs. 15 oz. Infant appeared grossly normal. Description of Procedure: This patient has a Lockhart catheter placed to straight drain. She is subsequently taken to the operating room where she sat up and spinal anesthetic is administered without incident. After the appropriate timeout, the patient has abdominal prep and drape. Scalpels and taken in the previous Pfannenstiel incision is incised. A second scalpel is taken down to the fascia. Fascia is extended bilaterally using the Barr scissors. Fascia is dissected off the rectus muscles sharply. Rectus muscles are the peritoneum identified and entered sharply. Peritoneal incision is extended superior and inferior without difficulty. Bladder blade is then placed. Bladder peritoneum was taken sharply off the lower uterine segment. Scalpels and taken a low transverse uterine incision is then made. Using a hemostat I into the uterine cavity bluntly. There is loss of copious amount of green fluid consistent with meconium and polyhydramnios. This uterine incision is then extended bluntly. 's head is then guided through the incision with fundal pressure delivered. Mouth and nares are bulb suctioned. Is no evidence of a nuchal cord. With more fundal pressure we deliver the rest of this infant's body. Vigorous viable male Apgars are 8 and 8 delivery time is 1847 hrs. After delivery of the the umbilical cord is doubly clamped and cut infant is handed off to the nurses in attendance. Cord blood is obtained at this time. The placenta is then manually extracted intact. Uterus is then externalized and uterine incision demarcated with Walsh clamps. Uterine incision then closed using 0 Vicryl running locked fashion 2 layers. Bladder peritoneum was then identified and closed using a 3-0 Vicryl. Excess fluid is removed from the abdomen and pelvis. Uterus, tubes, ovaries appear normal for term gestation. Uterus placed back into the abdomen. Parietal peritoneum was then closed using 0 Vicryl running fashion. Rectus muscles reapproximated in 0 Vicryl interrupted fashion. Fascial incision then closed using 0 PDS. Fascial incision is intact and hemostatic. Subcutaneous tissues and closed using a 3-0 Vicryl. Skin is and closed using emmanuel. All counts correct 3. Complications. Infant taken special care for observation and mother taken to her birthing suite.
--- NOTE | 2022-09-10 19:48 | P.MSEPDOC ---
Presenting Problems - Arrival Data Date of Arrival on Unit: 09/10/22 Time of Arrival on Unit: 15:32 Mode of Transport: Ambulatory - Complaint OB-Reason for Admission/Chief Complaint: Other Comment: pt is at home but business performance manager is refusing due to pt being 41 3/7 ga feeling it is unsafe, pt came in to be assessed and determin if section can be done today Medical History - Information : 3 Para: 2 Term: 2 : 0 Abortions: Spontaneous or Elective: 0 Number of Living Children: 2 - Gestational Age Gestational Age by GLADYS (wks/days): 41 Weeks and 3 Days - History Complications: Prior Review of Systems - Review of Systems Constitutional: No problems Breast: No problems ENT: No problems Cardiovascular: No problems Respiratory: No problems Gastrointestinal: No problems Genitourinary: No problems Musculoskeletal: No problems Neurological: No problems Skin: No problems Vital Signs - Temperature Temperature: 96.4 F Temperature Source: Temporal Artery Scan - Pulse Right Brachial Pulse Rate: 106 Pulse Assessment Method: Automatic Cuff - Respirations Respiratory Rate: 17 Oxygen Delivery Method: Room Air O2 Sat by Pulse Oximetry: 99 - Blood Pressure Right Arm Blood Pressure: 130/61 Blood Pressure Mean: 84 Blood Pressure Source: Automatic Cuff Medical Screen Scoring - Cervical Exam Dilation (cm): 0 - Assessment - Baby A Baseline FHR: 140 Heart Rate - NICHD Category: Category I (Normal) NST: Reactive Physician Notification - Physician Notified Physician Notified Date: 09/10/22 Physician Notified Time: 16:54 Physician: Jaspreet Moses New Order Received: Yes - Notification Comment Comment: admit pt for repeat section Maternal Triage Index - Maternal Triage Index Presenting for scheduled procedure w/no complaint: No - Stat/Priority 1 Stat Priority 1: No - Urgent/Priority 2 Urgent Priority 2: No - Prompt/Priority 3 Prompt Priority 3: Yes Criteria Met for Priority 3: pt is at home but business performance manager is refusing due to pt being 41 3/7 ga feeling it is unsafe, pt came in to be assessed and determin if section can be done today Disposition - Disposition OB Disposition: Admit, LDRP Suite I agree with the RN Medical Screening Exam: Yes Case reviewed; plan agreed upon as documented in EMR&OBIX.: Yes Diagnosis: RELATED CONDITIONS, UNSPECIFIED, THIRD TRIMESTER
[2022-09-10] MEDS: SENNOSIDES-DOCUSATE SODIUM 1 EACH TAB PO SCH (20:15)
[2022-09-10] MEDS: ACETAMINOPHEN TAB 500 MG TAB PO SCH (21:58)
[2022-09-10] MEDS: LACTATED RINGERS 1,000 ML IV SCH (23:00)
[2022-09-11] MEDS: KETOROLAC 15 MG/ML 1 ML VIAL IVP SCH (01:49)
[2022-09-11 04:03] LABS: Hepatitis B Surface Antigen Nonreactive (Nonreactive)
[2022-09-11 04:25] LABS: HIV 2 AB Non-Reactive (Non-Reactive); HIV AB P24 Non-Reactive (Non-Reactive); HIV P24 AG Non-Reactive (Non-Reactive)
[2022-09-11] MEDS: ACETAMINOPHEN TAB 500 MG TAB PO SCH ×3 (04:40→21:42)
[2022-09-11] MEDS: LACTATED RINGERS 1,000 ML IV SCH ×2 (04:40→21:43)
--- NOTE | 2022-09-11 05:56 | P.PNOBGPC ---
Subjective - Subjective Patient reports: Reports appetite normal, Reports voiding normally, Reports pain well controlled, Reports ambulating normally : doing well Objective - Vital Signs Latest vital signs: Vital Signs Temp Pulse Resp BP Pulse Ox 09/11/22 04:00 98.1 F 103 H 16 125/74 99 09/10/22 23:05 99.5 F 84 16 119/62 97 09/10/22 21:19 97.5 F L 96 17 138/65 100 09/10/22 20:46 84 16 127/61 99 09/10/22 20:16 96.2 F L 94 17 125/71 100 09/10/22 20:04 81 16 125/75 99 09/10/22 19:49 103 H 17 125/73 99 09/10/22 19:47 96.4 F L 106 H 17 130/61 99 09/10/22 19:34 106 H 17 130/61 99 09/10/22 19:30 99 09/10/22 19:19 96.4 F L 96 17 136/63 99 09/10/22 18:50 98.1 F 121 H 18 147/84 98 09/10/22 17:42 98.1 F 121 H 18 147/84 98 Intake and Output 09/10/22 09/10/22 09/11/22 14:59 22:59 06:59 Intake Total 1000 400 Output Total 808 150 Balance 192 250 Intake: IV 1000 400 Output: Urine 300 150 Output, Quantitative 508 Blood Loss Other: Voiding Method Indwelling Catheter Indwelling Catheter Weight 88.451 kg - Exam Lungs: bilateral: normal Chest: Normal S1, Normal S2 Extremities: Present: normal Abdomen: Present: normal appearance, soft. Absent: distention, tenderness Incision: Present: normal, dry, intact Uterus: Present: normal, firm - Labs Labs: Abnormal Lab Results - Last 24 Hours (Table) 09/10/22 09/10/22 09/10/22 Range/Units 17:35 17:35 17:41 Hgb 9.6 L (11.4-16.0) gm/dL Hct 30.8 L (34.0-46.0) % MCV 74.1 L (80.0-100.0) fL MCH 23.0 L (25.0-35.0) pg RDW 16.3 H (11.5-15.5) % Creatinine 0.46 L (0.52-1.04) mg/dL Glucose 111 H (74-99) mg/dL Urine Appearance Cloudy H (Clear) Urine Protein 1+ H (Negative) Urine Glucose (UA) 3+ H (Negative) Urine Blood Trace H (Negative) Ur Leukocyte Esterase Large H (Negative) Urine RBC 21 H (0-5) /hpf Urine WBC 23 H (0-5) /hpf Ur Squamous Epith Cells 10 H (0-4) /hpf Urine Bacteria Occasional H (None) /hpf Urine Mucus Rare H (None) /hpf Assessment and Plan Assessment: Postoperative day #1. Patient is resting without complaints. Vital signs are stable. She did have one temperature to 99.5 otherwise is afebrile. Uterus is firm nontender. Her incision is intact and dry. CBC is pending at this time. Plan today is to advance her diet, discontinue her Lockhart catheter, check a CBC, current ambulation, allow the patient to shower. (1) 41 weeks gestation of Current Visit: Yes Status: Acute Code(s): O48.0 - POST-TERM ; Z3A.41 - 41 WEEKS GESTATION OF SNOMED Code(s): 60786432 (2) Previous delivery affecting Current Visit: Yes Status: Acute Code(s): O34.219 - MATERNAL CARE FOR UNSP TYPE SCAR FROM PREVIOUS DEL SNOMED Code(s): 330568084 (3) No care in current Current Visit: Yes Status: Acute Code(s): O09.30 - SUPRVSN OF PREG W INSUFFICIENT ANTENAT CARE, UNSP TRIMESTER SNOMED Code(s): 966911025 (4) Gestational hypertension Current Visit: Yes Status: Acute Code(s): O13.9 - GESTATIONAL HTN W/O SIGNIFICANT PROTEINURIA, UNSP TRIMESTER SNOMED Code(s): 16070223
[2022-09-11 08:36] LABS: Anisocytosis Slight; Basophils % (A) 0 %; Eosinophils # (A) 0.1 k/uL (0-0.7); Eosinophils % (A) 1 %; HCT 25.9 % (34.0-46.0); Hypochromasia Marked; Lymphocytes % (A) 12 %; MCH 23.8 pg (25.0-35.0); MCHC 31.1 g/dL (31.0-37.0); MCV 76.4 fL (80.0-100.0); Microcytosis Slight; Monocytes # (A) 0.5 k/uL (0-1.0); Monocytes % (A) 5 %; Neutrophils # (A) 7.3 k/uL (1.3-7.7); Neutrophils % (A) 81 %; Platelet Count 182 k/uL (150-450); RBC 3.39 m/uL (3.80-5.40); RDW 16.8 % (11.5-15.5); WBC 9.1 k/uL (3.8-10.6)
[2022-09-11] MEDS: SENNOSIDES-DOCUSATE SODIUM 1 EACH TAB PO SCH ×2 (08:57→21:40)
[2022-09-11] MEDS: IBUPROFEN 600 MG TAB PO SCH ×4 (11:57→23:53)
[2022-09-11 14:44] LABS: C. trachomatis,PCR Negative (Neg,Equiv); Chlamydia trachomatis Source Urine; N. gonorrhoeae,PCR Negative (Neg,Equiv); Neisseria Source Urine
[2022-09-11] MEDS: FERROUS SULFATE 325 MG TAB PO SCH (17:49)
[2022-09-12] MEDS: ACETAMINOPHEN TAB 500 MG TAB PO SCH ×3 (03:25→17:17)
[2022-09-12] MEDS: KETOROLAC 15 MG/ML 1 ML VIAL IVP SCH (04:40)
[2022-09-12] MEDS: IBUPROFEN 600 MG TAB PO SCH ×3 (06:14→20:39)
--- NOTE | 2022-09-12 06:35 | P.PNOBGPC ---
Subjective - Subjective Patient reports: Reports appetite normal, Reports voiding normally, Reports pain well controlled, Reports ambulating normally : doing well, in NICU Objective - Vital Signs Latest vital signs: Vital Signs Temp Pulse Resp BP Pulse Ox 09/11/22 23:54 97.4 F L 89 16 101/64 98 09/11/22 16:00 98.3 F 71 16 120/65 09/11/22 13:22 97.7 F 84 14 122/60 09/11/22 08:53 98.1 F 83 14 99/64 Intake and Output 09/11/22 09/11/22 09/12/22 14:59 22:59 06:59 Intake Total 730 Output Total 1650 Balance -920 Intake: IV 250 Oral 480 Output: Urine 1650 Uretheral (Lockhart) 225 - Exam Lungs: bilateral: normal Chest: Normal S1, Normal S2 Extremities: Present: normal Abdomen: Present: normal appearance, soft. Absent: distention, tenderness Incision: Present: normal, dry, intact Uterus: Present: normal, firm - Labs Labs: Abnormal Lab Results - Last 24 Hours (Table) 09/11/22 Range/Units 08:08 RBC 3.39 L (3.80-5.40) m/uL Hgb 8.0 L D (11.4-16.0) gm/dL Hct 25.9 L (34.0-46.0) % MCV 76.4 L (80.0-100.0) fL MCH 23.8 L (25.0-35.0) pg RDW 16.8 H (11.5-15.5) % Assessment and Plan Assessment: Post operative day #2. Patient is resting without complaints. Vital signs are stable she's afebrile. Uterus is firm nontender and her incision is intact and dry. Patient is tolerating regular diet, urinating, ambulating without difficulty. CBC yesterday showed hemoglobin of 8 which is an appropriate drop from her preoperative hemoglobin. I did start her on some iron therapy. Plan today is to continue routine care. Baby is in special care due to low blood sugars but otherwise doing well. Anticipate discharge 1-2 days. (1) 41 weeks gestation of Current Visit: Yes Status: Acute Code(s): O48.0 - POST-TERM ; Z3A.41 - 41 WEEKS GESTATION OF SNOMED Code(s): 77249623 (2) Previous delivery affecting Current Visit: Yes Status: Acute Code(s): O34.219 - MATERNAL CARE FOR UNSP TYPE SCAR FROM PREVIOUS DEL SNOMED Code(s): 126104339 (3) No care in current Current Visit: Yes Status: Acute Code(s): O09.30 - SUPRVSN OF PREG W INSUFFICIENT ANTENAT CARE, UNSP TRIMESTER SNOMED Code(s): 042930099 (4) Gestational hypertension Current Visit: Yes Status: Acute Code(s): O13.9 - GESTATIONAL HTN W/O SIGNIFICANT PROTEINURIA, UNSP TRIMESTER SNOMED Code(s): 54039691
[2022-09-12] MEDS: SENNOSIDES-DOCUSATE SODIUM 1 EACH TAB PO SCH ×2 (07:40→20:40)
[2022-09-12] MEDS: FERROUS SULFATE 325 MG TAB PO SCH ×2 (07:40→16:50)
--- NOTE | 2022-09-12 12:54 | P.PN ---
Progress Note - Text 09/11/22 621 am 27-year-old female status post , patient with spinal Duramorph. Patient seen and evaluated for postop pain control, she has a VAS of with no complains of nausea vomiting or pruritus. Doing well
[2022-09-13] MEDS: ACETAMINOPHEN TAB 500 MG TAB PO SCH ×5 (02:13→23:01)
[2022-09-13] MEDS: IBUPROFEN 600 MG TAB PO SCH ×4 (03:12→16:48)
--- NOTE | 2022-09-13 06:03 | P.PNOBGPC ---
Subjective - Subjective Patient reports: Reports appetite normal, Reports voiding normally, Reports pain well controlled, Reports ambulating normally : doing well, in NICU Objective - Vital Signs Latest vital signs: Vital Signs Temp Pulse Resp BP Pulse Ox 09/13/22 00:00 98.0 F 85 17 114/73 09/12/22 16:00 97.5 F L 94 18 120/77 09/12/22 08:00 97.8 F 80 18 113/72 99 Intake and Output 09/12/22 09/12/22 09/13/22 14:59 22:59 06:59 Intake Total 480 Balance 480 Intake: Oral 480 Other: Voiding Method Indwelling Catheter - Exam Lungs: bilateral: normal Chest: Normal S1, Normal S2 Extremities: Present: normal Abdomen: Present: normal appearance, soft. Absent: distention, tenderness Incision: Present: normal, dry, intact Uterus: Present: normal, firm Assessment and Plan Assessment: Post operative day #3. Patient is resting without new complaints wishes to go home. Vital signs are stable she's afebrile. Uterus is firm nontender and she is having normal lochia. My impression this is a normal post operative course. Plan is to continue routine postoperative care discharge home later today (1) 41 weeks gestation of Current Visit: Yes Status: Acute Code(s): O48.0 - POST-TERM ; Z3A.41 - 41 WEEKS GESTATION OF SNOMED Code(s): 04426842 (2) Previous delivery affecting Current Visit: Yes Status: Acute Code(s): O34.219 - MATERNAL CARE FOR UNSP TYPE SCAR FROM PREVIOUS DEL SNOMED Code(s): 976416554 (3) No care in current Current Visit: Yes Status: Acute Code(s): O09.30 - SUPRVSN OF PREG W INSUFFICIENT ANTENAT CARE, UNSP TRIMESTER SNOMED Code(s): 014406039 (4) Gestational hypertension Current Visit: Yes Status: Acute Code(s): O13.9 - GESTATIONAL HTN W/O SIGNIFICANT PROTEINURIA, UNSP TRIMESTER SNOMED Code(s): 22058709
--- NOTE | 2022-09-13 06:10 | P.DS ---
Providers Date of admission: 09/10/22 17:26 Expected date of discharge: 09/13/22 Attending physician: Jaspreet Moses Primary care physician: Stated None - Discharge Diagnosis(es) (1) 41 weeks gestation of Current Visit: Yes Status: Acute (2) Previous delivery affecting Current Visit: Yes Status: Acute (3) No care in current Current Visit: Yes Status: Acute (4) Gestational hypertension Current Visit: Yes Status: Acute Hospital Course: Please see dictated H&P for intimate details of this patient's admission. Brief summary this is a 27-year-old 3 para 2 female 41-1/2 weeks gestation who is admitted to labor and delivery with no care who presents to labor and delivery for evaluation and delivery. Patient subsequently undergoes a repeat low transverse section for viable male . Please see dictated delivery note. Evaluation is consistent with uncontrolled gestational diabetes. Postoperative patient does well. She does have some mild anemia which is treated with oral iron. Postoperative 3 she is felt to be stable for discharge home follow up with me in 1 week. Procedures: Repeat low transverse section Patient Condition at Discharge: Good Plan - Discharge Summary New Discharge Prescriptions: New Ferrous Sulfate [Iron (65 MG Elemental)] 325 mg PO BID-W/MEALS #60 tab Ibuprofen [Motrin] 600 mg PO Q6H #40 tab oxyCODONE HCL [OxyIR] 5 mg PO Q4HR PRN #18 tab PRN Reason: Pain Scale 4 - 6 No Action Vit No.179/Iron/Folic [ Tablet] 1 tab PO DAILY Discharge Medication List Vit No.179/Iron/Folic [ Tablet] 1 tab PO DAILY 06/23/22 [History] Ferrous Sulfate [Iron (65 MG Elemental)] 325 mg PO BID-W/MEALS #60 tab 09/13/22 [Rx] Ibuprofen [Motrin] 600 mg PO Q6H #40 tab 09/13/22 [Rx] oxyCODONE HCL [OxyIR] 5 mg PO Q4HR PRN #18 tab 09/13/22 [Rx] Follow up Appointment(s)/Referral(s): Jaspreet Moses MD [STAFF PHYSICIAN] - 1 Week (Please see me for an incision check on 09-18-2022 @11:15 Am Also please see me for a visit on 10-25-2022 @11:15 Am) Patient Instructions/Handouts: (DC), Iron Deficiency Anemia (GEN), Iron Rich Diet (DC) Activity/Diet/Wound Care/Special Instructions: No heavy lifting or strenuous activity for 6 weeks. No intercourse or anything per vagina for 6 weeks. Please call if any fever, chills, excessive vaginal bleeding, and/or abdominal pain Discharge Disposition: HOME SELF-CARE
[2022-09-13] MEDS: FERROUS SULFATE 325 MG TAB PO SCH ×2 (07:53→17:32)
[2022-09-13 07:57] VITALS: RESP 16
[2022-09-13] MEDS: SENNOSIDES-DOCUSATE SODIUM 1 EACH TAB PO SCH ×2 (08:45→23:00)
[2022-09-14] MEDS: IBUPROFEN 600 MG TAB PO SCH ×2 (00:56→08:23)
--- NOTE | 2022-09-14 06:23 | P.PNOBGPC ---
Subjective - Subjective Patient reports: Reports appetite normal, Reports voiding normally, Reports pain well controlled, Reports ambulating normally : doing well Objective - Vital Signs Latest vital signs: Vital Signs Temp Pulse Resp BP Pulse Ox 09/14/22 00:00 98.3 F 98 16 94/57 09/13/22 16:00 97.6 F 98 16 112/76 09/13/22 07:55 98.1 F 62 16 109/70 100 - Exam Lungs: bilateral: normal Chest: Normal S1, Normal S2 Extremities: Present: normal Abdomen: Present: normal appearance, soft. Absent: distention, tenderness Incision: Present: normal, dry, intact Uterus: Present: normal, firm Assessment and Plan Assessment: Postoperative day #4. Patient was intending going home yesterday however her baby still was having some glucose issues therefore she elected to stay. Patient remains without new complaints. Vital signs are stable she is afebrile. Uterus is firm nontender and her incision is intact and dry. My impression is a normal post operative course. Plan is to continue routine postoperative care discharge home today. (1) 41 weeks gestation of Current Visit: Yes Status: Acute Code(s): O48.0 - POST-TERM ; Z3A.41 - 41 WEEKS GESTATION OF SNOMED Code(s): 12870026 (2) Previous delivery affecting Current Visit: Yes Status: Acute Code(s): O34.219 - MATERNAL CARE FOR UNSP TYPE SCAR FROM PREVIOUS DEL SNOMED Code(s): 870706903 (3) No care in current Current Visit: Yes Status: Acute Code(s): O09.30 - SUPRVSN OF PREG W INSUFFICIENT ANTENAT CARE, UNSP TRIMESTER SNOMED Code(s): 763077412 (4) Gestational hypertension Current Visit: Yes Status: Acute Code(s): O13.9 - GESTATIONAL HTN W/O SIGNIFICANT PROTEINURIA, UNSP TRIMESTER SNOMED Code(s): 72553111
[2022-09-14] MEDS: SENNOSIDES-DOCUSATE SODIUM 1 EACH TAB PO SCH (08:00)
[2022-09-14 10:13] VITALS: BP 120/79; PULSE 99; TEMP 98.1
[2022-09-14] MEDS: ACETAMINOPHEN TAB 500 MG TAB PO SCH (11:30)
== END 2022-09-14 13:40 | disposition home or self-care (01) | DRG 540 ==
LOC: FBPOP 15:32 → 4FBP 17:26
PROVIDERS: ADMIT Obstetrics & Gynecology; ATTEND Obstetrics & Gynecology
PROC: 10D00Z1 Extraction of Products of Conception, Low, Open Approach (ICD-10-PCS; principal; 2022-09-10 18:30)
DX: O48.0 Post-term pregnancy (principal); O24.429 Gestational diabetes mellitus in childbirth, unspecified control; J45.909 Unspecified asthma, uncomplicated; Z37.0 Single live birth; Z3A.41 41 weeks gestation of pregnancy; Z28.310 Unvaccinated for COVID-19; O34.211 Maternal care for low transverse scar from previous cesarean delivery; O36.63X0 Maternal care for excessive fetal growth, third trimester, not applicable or unspecified; O13.4 Gestational [pregnancy-induced] hypertension without significant proteinuria, complicating childbirth; O99.52 Diseases of the respiratory system complicating childbirth; O77.0 Labor and delivery complicated by meconium in amniotic fluid; N85.8 Other specified noninflammatory disorders of uterus; O99.02 Anemia complicating childbirth; Z79.899 Other long term (current) drug therapy; Z87.440 Personal history of urinary (tract) infections
CPT/HCPCS: 59025; 80306; 81001; 82565; 82570; 82947; 83036; 83615; 84156; 84450; 84460; 84520; 84550; 85025; 86762; 86780; 86850; 86900; 86901; 87340; 87390; 87491; 87591; 88307; 99213